=== PATIENT | male | born 1975 | race Caucasian/White ===

== ENCOUNTER 2024-04-17 10:32 | Inpatient (IN) | payer OTHER ==
[2024-04-17 11:00] VITALS: BMI 21.9
[2024-04-17] MEDS ORDERED: MAGNESIUM HYDROX 2400MG/30ML ORAL SUSPENSION 30 ML CUP PO PRN (11:27)
[2024-04-17] MEDS ORDERED: NALOXONE (NARCAN) HCL 4 MG/0.1 ML SPRAY NS PRN (11:27)
[2024-04-17] MEDS ORDERED: MAG HYDROX/AL HYDROX/SIMETH 30 ML UNIT-DOSE CUP PO PRN (11:27)
[2024-04-17] MEDS ORDERED: POLYETHYLENE GLYCOL (HEALTHYLAX) 3350 17 GM PACKET PO PRN (11:27)
[2024-04-17] MEDS ORDERED: IBUPROFEN 400 MG TABLET (FP) PO PRN (11:27)
[2024-04-17] MEDS ORDERED: IBUPROFEN 600 MG TABLET (FP) PO PRN (11:27)
[2024-04-17] MEDS ORDERED: guaiFENesin 600 MG TABLET.ER (FP) PO PRN (11:27)
[2024-04-17] MEDS ORDERED: LOPERAMIDE HCL 2 MG CAPSULE PO PRN (11:27)
[2024-04-17] MEDS ORDERED: NALOXONE HCL 0.4 MG/ML VIAL IM PRN (11:27)
[2024-04-17] MEDS ORDERED: ACETAMINOPHEN 325 MG TABLET (FP) PO PRN (11:27)
[2024-04-17] MEDS ORDERED: BENZOCAINE/MENTHOL (CHLORASEPTIC ) LOZENGE MM PRN (11:27)
[2024-04-17] MEDS ORDERED: BENZONATATE 200 MG CAPSULE PO PRN (11:27)
[2024-04-17] MEDS ORDERED: PRENATAL VITAMINS W/ FOLIC ACID TABLET (FP) PO ONE (11:54)
[2024-04-17] MEDS ORDERED: NICOTINE 7 MG/24 HOURS TOPICAL PATCH TD ONE (11:54)
[2024-04-17] MEDS: NICOTINE 7 MG/24 HOURS TOPICAL PATCH TD SCH (11:56)
[2024-04-17] MEDS: PRENATAL VITAMINS W/ FOLIC ACID TABLET (FP) PO SCH (11:56)
[2024-04-17] MEDS: hydrOXYzine PAMOATE 25 MG CAPSULE (FP) PO PRN (16:55)
[2024-04-17] MEDS: MELATONIN 5 MG TABLETS PO SCH (21:34)
[2024-04-17] MEDS: QUEtiapine FUMARATE 50 MG TABLET PO SCH (21:34)
[2024-04-17] MEDS: THIAMINE 100 MG TABLET PO SCH (21:34)
[2024-04-18] MEDS: methaDONE HCL 40 MG DISPERSABLE TABLET PO SCH (09:19)
[2024-04-18 09:23] LABS: HEMATOCRIT 40.4 % (35.4-49); HEMOGLOBIN 12.6 GM/dL (11.7-16.9); MCHC 31.2 g/dl (32.0-35.9); MEAN CELL VOLUME 62.7 fl (80-96); MEAN PLT VOLUME 9.7 fl (7.5-11.1); PLATELET COUNT 144 10^3/uL (134-434); RBC 6.44 M/mm3 (4.00-5.60); RDW 17.2 % (11.9-15.9)
[2024-04-18 09:25] LABS: MCH 19.6 pg (25.7-33.7)
[2024-04-18 09:28] LABS: INR 1.7 (0.83-1.09); PROTHROMBIN TIME (PATIENT) 19.3 SEC (9.7-13.0)
[2024-04-18 09:29] LABS: POTASSIUM 4.2 mmol/L (3.5-5.1)
[2024-04-18 09:41] LABS: BLOOD UREA NITROGEN 20.8 mg/dL (7-18); CALCIUM 8.7 mg/dL (8.5-10.1)
[2024-04-18 09:42] LABS: ALBUMIN 3.7 g/dl (3.4-5.0)
[2024-04-18 09:43] LABS: BILIRUBIN,TOTAL 0.7 mg/dL (0.2-1); TOT PROT 6.6 g/dl (6.4-8.2)
[2024-04-18 09:44] LABS: CREATININE 0.9 mg/dL (0.55-1.3)
[2024-04-18 11:36] LABS: SYPHILIS W/ RPR CONF NON-REACTIVE (NONREACTIVE)
[2024-04-18] MEDS: WARFARIN NA 5 MG TABLET PO SCH (17:14)
[2024-04-19 12:44] LABS: URINE APPEARANCE CLEAR; URINE BILIRUBIN NEGATIVE (NEGATIVE); URINE COLOR YELLOW; URINE GLUCOSE (UA) NEGATIVE (NEGATIVE); URINE KETONE NEGATIVE (NEGATIVE); URINE LEUK ESTERASE NEGATIVE (NEGATIVE); URINE NITRITE NEGATIVE (NEGATIVE); URINE PROTEIN NEGATIVE (NEGATIVE); URINE UROBILINOGEN 0.2 mg/dL (0.2-1.0)
[2024-04-19 12:51] LABS: INR 1.4 (0.83-1.09); PROTHROMBIN TIME (PATIENT) 15.7 SEC (9.7-13.0)
[2024-04-19] MEDS ORDERED: WARFARIN NA 2.5 MG TABLET PO ONE (14:17)
[2024-04-19] MEDS: WARFARIN NA 5 MG TABLET PO ONE (14:46)
[2024-04-19] MEDS: WARFARIN NA 2.5 MG TABLET PO ONE (15:48)
[2024-04-19] MEDS: CEPHALEXIN MONOHYDRATE 500 MG CAPSULE (UD) PO SCH (19:59)
[2024-04-20 06:39] VITALS: RESP 18; TEMP 97.7
[2024-04-20 10:38] VITALS: BP 126/69; PULSE 84
[2024-04-20] MEDS ORDERED: WARFARIN NA 5 MG TABLET PO SCH (18:00)
[2024-04-20] MEDS ORDERED: WARFARIN NA 10 MG, WARFARIN NA 2.5 MG PO SCH (18:00)
== END 2024-04-20 15:50 | disposition short-term general hospital (02) | DRG 772 ==
LOC: YASAS 10:32 → Y3NR 12:10 → Y3W 04-18 12:29
PROVIDERS: ADMIT Psychiatry & Neurology Pain Medicine; ATTEND Psychiatry & Neurology Pain Medicine
PROC: HZ42ZZZ Group Counseling for Substance Abuse Treatment, Cognitive-Behavioral (ICD-10-PCS; principal; 2024-04-17)
DX: F11.20 Opioid dependence, uncomplicated (principal); F14.20 Cocaine dependence, uncomplicated; F17.210 Nicotine dependence, cigarettes, uncomplicated; F19.24 Other psychoactive substance dependence with psychoactive substance-induced mood disorder; F41.9 Anxiety disorder, unspecified; F32.A Depression, unspecified; D68.8 Other specified coagulation defects; I63.9 Cerebral infarction, unspecified; G47.00 Insomnia, unspecified; K08.89 Other specified disorders of teeth and supporting structures; Z79.01 Long term (current) use of anticoagulants; Z95.2 Presence of prosthetic heart valve; I69.828 Other speech and language deficits following other cerebrovascular disease
CPT/HCPCS: 36415; 80053; 80305; 81003; 85027; 85610; 86780; 86803; 87811; 93005; 93010

== ENCOUNTER 2024-04-20 11:09 | Inpatient (IN) | payer OTHER ==
[2024-04-20] MEDS ORDERED: ASPIRIN 81 MG CHEWABLE TABLETS ONE (11:51)
[2024-04-20] MEDS: ASPIRIN 81 MG CHEWABLE TABLETS PO ONE (11:55)
[2024-04-20 12:02] LABS: BASO % 0.7 % (0-2.0); EOS % 1.5 % (0-4.5); HEMATOCRIT 34.3 % (35.4-49); HEMOGLOBIN 10.9 GM/dL (11.7-16.9); LYMPH % 32.2 % (8-40); MCH 19.6 pg (25.7-33.7); MCHC 31.6 g/dl (32.0-35.9); MEAN CELL VOLUME 61.9 fl (80-96); MEAN PLT VOLUME 9.7 fl (7.5-11.1); MONO % 7.2 % (3.8-10.2); NEUT % 58.4 % (42.8-82.8); PLATELET COUNT 144 10^3/uL (134-434); RBC 5.55 M/mm3 (4.00-5.60); RDW 16.8 % (11.9-15.9); WHITE BLOOD COUNT 6.1 K/mm3 (4.0-10.0)
[2024-04-20 12:10] LABS: INR 2.57 (0.83-1.09); PROTHROMBIN TIME (PATIENT) 28.7 SEC (9.7-13.0)
[2024-04-20 12:12] LABS: ACTIVATED PTT 33.7 SECONDS (25.2-36.5)
[2024-04-20 12:25] LABS: POTASSIUM 4.4 mmol/L (3.5-5.1)
[2024-04-20] MEDS: SODIUM CHLORIDE 1,000 ML IV SCH (12:25)
[2024-04-20 12:28] LABS: ALBUMIN 3.3 g/dl (3.4-5.0); CALCIUM 8.5 mg/dL (8.5-10.1)
[2024-04-20 12:30] LABS: BLOOD UREA NITROGEN 19.8 mg/dL (7-18)
[2024-04-20 12:31] LABS: PH,URINE 6.5 (5.0-8.0); URINE APPEARANCE CLEAR; URINE BILIRUBIN NEGATIVE (NEGATIVE); URINE COLOR YELLOW; URINE GLUCOSE (UA) NEGATIVE (NEGATIVE); URINE KETONE NEGATIVE (NEGATIVE); URINE LEUK ESTERASE NEGATIVE (NEGATIVE); URINE NITRITE NEGATIVE (NEGATIVE); URINE PROTEIN NEGATIVE (NEGATIVE); URINE UROBILINOGEN 0.2 mg/dL (0.2-1.0)
[2024-04-20 12:32] LABS: CREATININE 0.8 mg/dL (0.55-1.3)
[2024-04-20 12:33] LABS: TOT PROT 5.9 g/dl (6.4-8.2)
[2024-04-20 12:35] LABS: BILIRUBIN,TOTAL 0.5 mg/dL (0.2-1)
[2024-04-20 12:37] LABS: COCAINE, UR NEGATIVE (NEGATIVE); OPIATES, URI NEGATIVE (NEGATIVE); PHENCYCLIDINE,URINE NEGATIVE (NEGATIVE); URINE BARBITURATES NEGATIVE (NEGATIVE); URINE BENZODIAZEPINES NEGATIVE (NEGATIVE)
[2024-04-20 12:41] LABS: ANISOCYTOSIS 2+; MACROCYTOSIS 0; OVALOCYTE 1+; TARGET CELLS 2+
[2024-04-20 12:46] LABS: METHADONE, UR POSITIVE (NEGATIVE); URINE AMPHETAMINES NEGATIVE (NEGATIVE)
[2024-04-20 13:22] LABS: HIV INTERPRETATION NEGATIVE (NEGATIVE)
[2024-04-20] MEDS ORDERED: ACETAMINOPHEN 500 MG TABLET (FP) PO PRN (15:22)
[2024-04-20] MEDS: AMOX TR/POT CLAV 875MG/125MG TABLETS (FP) PO SCH (17:34)
[2024-04-20] MEDS: NICOTINE 7 MG/24 HOURS TOPICAL PATCH TD SCH (17:35)
[2024-04-20] MEDS: WARFARIN NA 10 MG TABLET PO SCH (17:37)
[2024-04-20] MEDS: ATORVASTATIN CA 40 MG TABLET (FP) PO SCH (21:24)
[2024-04-20 22:04] LABS: CHOLESTEROL 142 mg/dL (50-200)
[2024-04-20 22:07] LABS: LDL CHOLESTEROL (ONLY SJRH) 68 mg/dL (5-100)
[2024-04-20 22:37] LABS: HDL CHOLESTEROL 45 mg/dL (40-60)
[2024-04-21 09:17] LABS: INR 3.19 (0.83-1.09); PROTHROMBIN TIME (PATIENT) 34.9 SEC (9.7-13.0)
[2024-04-21 09:18] LABS: HEMATOCRIT 38.6 % (35.4-49); HEMOGLOBIN 12.1 GM/dL (11.7-16.9); LYMPH % 40.5 % (8-40); MCHC 31.4 g/dl (32.0-35.9); MEAN CELL VOLUME 61.8 fl (80-96); MEAN PLT VOLUME 9.7 fl (7.5-11.1); NEUT % 50.5 % (42.8-82.8); RBC 6.24 M/mm3 (4.00-5.60); RDW 17.2 % (11.9-15.9); WHITE BLOOD COUNT 4.8 K/mm3 (4.0-10.0)
[2024-04-21 09:20] LABS: MCH 19.4 pg (25.7-33.7)
[2024-04-21 09:29] LABS: POTASSIUM 4.5 mmol/L (3.5-5.1)
[2024-04-21 09:35] LABS: ALBUMIN 3.7 g/dl (3.4-5.0); BLOOD UREA NITROGEN 19.7 mg/dL (7-18)
[2024-04-21] MEDS: PANTOPRAZOLE 40 MG TABLET PO SCH (09:37)
[2024-04-21 09:39] LABS: BILIRUBIN,TOTAL 0.5 mg/dL (0.2-1); CREATININE 0.9 mg/dL (0.55-1.3)
[2024-04-21 09:40] LABS: TOT PROT 6.5 g/dl (6.4-8.2)
[2024-04-21] MEDS ORDERED: methaDONE HCL 40 MG DISPERSABLE TABLET PO SCH (10:00)
[2024-04-21 10:11] LABS: PLATELET COUNT 151 10^3/uL (134-434)
[2024-04-21] MEDS: methaDONE HCL 40 MG DISPERSABLE TABLET PO SCH (10:35)
[2024-04-21] MEDS ORDERED: QUEtiapine FUMARATE 25 MG TABLET ONE ×2 (11:29→22:20)
[2024-04-21] MEDS: NICOTINE 21 MG/24 HOURS TOPICAL PATCH TD SCH (11:31)
[2024-04-21] MEDS: QUEtiapine FUMARATE 50 MG TABLET PO SCH (11:31)
[2024-04-21] MEDS: THIAMINE 100 MG TABLET PO SCH (11:31)
[2024-04-21] MEDS: NICOTINE POLACRILEX 4 MG GUM BUC PRN (13:20)
[2024-04-21] MEDS: POLYETHYLENE GLYCOL (HEALTHYLAX) 3350 17 GM PACKET PO SCH (22:22)
[2024-04-21] MEDS: ATORVASTATIN CA 80 MG TABLET (FP) PO SCH (22:22)
[2024-04-21] MEDS: MELATONIN 5 MG TABLETS PO PRN (22:22)
[2024-04-22 07:38] LABS: BASO % 0.9 % (0-2.0); EOS % 2.8 % (0-4.5); HEMATOCRIT 37.3 % (35.4-49); HEMOGLOBIN 11.9 GM/dL (11.7-16.9); LYMPH % 37.7 % (8-40); MCHC 31.8 g/dl (32.0-35.9); MEAN CELL VOLUME 62.3 fl (80-96); MEAN PLT VOLUME 10.3 fl (7.5-11.1); MONO % 5.6 % (3.8-10.2); PLATELET COUNT 154 10^3/uL (134-434); RBC 5.99 M/mm3 (4.00-5.60); RDW 16.5 % (11.9-15.9); WHITE BLOOD COUNT 7.1 K/mm3 (4.0-10.0)
[2024-04-22 07:39] LABS: MCH 19.8 pg (25.7-33.7)
[2024-04-22 07:44] LABS: POTASSIUM 4.5 mmol/L (3.5-5.1)
[2024-04-22 07:49] LABS: CALCIUM 8.6 mg/dL (8.5-10.1)
[2024-04-22 07:50] LABS: MAGNESIUM 2.1 mg/dL (1.8-2.4)
[2024-04-22 07:51] LABS: ALBUMIN 3.4 g/dl (3.4-5.0)
[2024-04-22 07:54] LABS: BILIRUBIN,TOTAL 0.3 mg/dL (0.2-1)
[2024-04-22 07:55] LABS: TOT PROT 6.1 g/dl (6.4-8.2)
[2024-04-22] MEDS ORDERED: QUEtiapine FUMARATE 25 MG TABLET ONE (09:03)
[2024-04-22] MEDS: ASPIRIN COATED 81 MG TABLET.EC PO SCH (09:08)
[2024-04-22] MEDS: MULTIVITAMINS (DAILY MVI) TABLET (FP) PO SCH (09:09)
[2024-04-22 10:25] LABS: PROTHROMBIN TIME (PATIENT) 45.1 SEC (9.7-13.0)
[2024-04-22 10:42] LABS: INR 4.09 (0.83-1.09)
[2024-04-23 09:01] LABS: INR 3.1 (0.83-1.09); PROTHROMBIN TIME (PATIENT) 33.9 SEC (9.7-13.0)
[2024-04-23 09:19] LABS: BASO % 0.5 % (0-2.0); EOS % 3.4 % (0-4.5); HEMATOCRIT 37.7 % (35.4-49); LYMPH % 42.9 % (8-40); MCHC 31.7 g/dl (32.0-35.9); MEAN CELL VOLUME 61.8 fl (80-96); MONO % 6.2 % (3.8-10.2); PLATELET COUNT 158 10^3/uL (134-434); RDW 16.7 % (11.9-15.9); WHITE BLOOD COUNT 6.6 K/mm3 (4.0-10.0)
[2024-04-23 09:25] LABS: POTASSIUM 4.2 mmol/L (3.5-5.1)
[2024-04-23 09:26] LABS: MCH 19.6 pg (25.7-33.7)
[2024-04-23 09:30] LABS: CALCIUM 8.8 mg/dL (8.5-10.1)
[2024-04-23 09:31] LABS: ALBUMIN 3.7 g/dl (3.4-5.0); BLOOD UREA NITROGEN 25.2 mg/dL (7-18)
[2024-04-23 09:35] LABS: BILIRUBIN,TOTAL 0.7 mg/dL (0.2-1); CREATININE 0.9 mg/dL (0.55-1.3)
[2024-04-23 09:36] LABS: TOT PROT 6.8 g/dl (6.4-8.2)
[2024-04-23] MEDS ORDERED: QUEtiapine FUMARATE 25 MG TABLET ONE ×2 (09:43→22:14)
[2024-04-23] MEDS: WARFARIN NA 5 MG, WARFARIN NA 3 MG PO SCH (17:23)
[2024-04-23] MEDS: WARFARIN NA 10 MG TABLET PO SCH (17:24)
[2024-04-23] MEDS ORDERED: WARFARIN NA 3 MG TABLET ONE (18:05)
[2024-04-24] MEDS ORDERED: QUEtiapine FUMARATE 25 MG TABLET ONE ×2 (09:39→21:13)
[2024-04-24 09:58] LABS: INR 2.55 (0.83-1.09); PROTHROMBIN TIME (PATIENT) 28.5 SEC (9.7-13.0)
[2024-04-24 10:06] LABS: BASO % 0.6 % (0-2.0); HEMOGLOBIN 12.1 GM/dL (11.7-16.9); MCHC 31.9 g/dl (32.0-35.9); MEAN CELL VOLUME 62.1 fl (80-96); MEAN PLT VOLUME 10.2 fl (7.5-11.1); MONO % 6.3 % (3.8-10.2); NEUT % 55.1 % (42.8-82.8); PLATELET COUNT 144 10^3/uL (134-434); RBC 6.12 M/mm3 (4.00-5.60)
[2024-04-24 10:08] LABS: MCH 19.8 pg (25.7-33.7)
[2024-04-24 10:42] LABS: ANISOCYTOSIS 1+; MACROCYTOSIS 0; TARGET CELLS 1+
[2024-04-24 11:01] LABS: POTASSIUM 4.1 mmol/L (3.5-5.1)
[2024-04-24 11:17] LABS: CALCIUM 8.7 mg/dL (8.5-10.1)
[2024-04-24 11:18] LABS: BLOOD UREA NITROGEN 25.7 mg/dL (7-18)
[2024-04-24 11:20] LABS: ALBUMIN 3.7 g/dl (3.4-5.0)
[2024-04-24 11:21] LABS: PHOSPHOROUS 3.8 mg/dL (2.5-4.9)
[2024-04-24 11:22] LABS: BILIRUBIN,TOTAL 0.8 mg/dL (0.2-1); TOT PROT 6.7 g/dl (6.4-8.2)
[2024-04-24] MEDS ORDERED: WARFARIN NA 3 MG TABLET ONE (17:04)
[2024-04-25 07:59] LABS: HEMATOCRIT 38.6 % (35.4-49); HEMOGLOBIN 11.9 GM/dL (11.7-16.9); MCHC 30.9 g/dl (32.0-35.9); MEAN CELL VOLUME 63.2 fl (80-96); MEAN PLT VOLUME 10.9 fl (7.5-11.1); PLATELET COUNT 174 10^3/uL (134-434); RDW 16.9 % (11.9-15.9); WHITE BLOOD COUNT 7.6 K/mm3 (4.0-10.0)
[2024-04-25 08:01] LABS: MCH 19.5 pg (25.7-33.7)
[2024-04-25 08:15] LABS: INR 3.05 (0.83-1.09); PROTHROMBIN TIME (PATIENT) 33.4 SEC (9.7-13.0)
[2024-04-25 08:18] LABS: POTASSIUM 4.1 mmol/L (3.5-5.1)
[2024-04-25 08:21] LABS: ALBUMIN 3.8 g/dl (3.4-5.0); BLOOD UREA NITROGEN 24.4 mg/dL (7-18); CALCIUM 8.9 mg/dL (8.5-10.1)
[2024-04-25 08:24] LABS: PHOSPHOROUS 3.8 mg/dL (2.5-4.9)
[2024-04-25 08:26] LABS: BILIRUBIN,TOTAL 1.2 mg/dL (0.2-1); TOT PROT 6.8 g/dl (6.4-8.2)
[2024-04-25] MEDS ORDERED: QUEtiapine FUMARATE 25 MG TABLET ONE (09:47)
[2024-04-25 09:48] LABS: BILIRUBIN,DIRECT 0.2 mg/dL (0.0-0.2)
[2024-04-25 11:07] VITALS: BMI 22.9
[2024-04-25] MEDS: WARFARIN NA 5 MG TABLET PO SCH (18:52)
[2024-04-26 05:47] VITALS: RESP 18
[2024-04-26 14:38] VITALS: BP 102/58; PULSE 64; TEMP 98.7
== END 2024-04-26 14:42 | disposition other institution (70) | DRG 45 ==
LOC: JER 11:09 → JERBED 13:16 → OBSVTOIN 13:54 → J4S 15:12
PROVIDERS: ADMIT Internal Medicine; ATTEND Internal Medicine
DX: I63.9 Cerebral infarction, unspecified (principal); E44.0 Moderate protein-calorie malnutrition; F11.20 Opioid dependence, uncomplicated; I69.354 Hemiplegia and hemiparesis following cerebral infarction affecting left non-dominant side; E78.5 Hyperlipidemia, unspecified; F17.210 Nicotine dependence, cigarettes, uncomplicated; K02.9 Dental caries, unspecified; Z68.23 Body mass index [BMI] 23.0-23.9, adult
CPT/HCPCS: 36415; 70450-TC; 70496-TC; 70498-TC; 70551-TC; 71045-TC-FY; 80053; 80061; 80307; 81003; 82248; 82550; 82728; 82962; 83036; 83540; 83550; 83735; 84100; 84484; 85025; 85027; 85610; 85730; 86803; 86850; 86900; 86901; 87389; 93005; 93010; 97116-GP; 97161-GP; 99291; G0378

== ENCOUNTER 2024-04-26 16:37 | Inpatient (IN) | payer OTHER ==
[2024-04-26 17:25] VITALS: BMI 22.9
[2024-04-26] MEDS ORDERED: IBUPROFEN 600 MG TABLET (FP) PO PRN (19:12)
[2024-04-26] MEDS ORDERED: ACETAMINOPHEN 325 MG TABLET (FP) PO PRN (19:12)
[2024-04-26] MEDS ORDERED: BENZOCAINE/MENTHOL (CHLORASEPTIC ) LOZENGE MM PRN (19:12)
[2024-04-26] MEDS ORDERED: IBUPROFEN 400 MG TABLET (FP) PO PRN (19:12)
[2024-04-26] MEDS ORDERED: LOPERAMIDE HCL 2 MG CAPSULE PO PRN (19:12)
[2024-04-26] MEDS ORDERED: NALOXONE HCL 0.4 MG/ML VIAL IM PRN (19:12)
[2024-04-26] MEDS ORDERED: MAGNESIUM HYDROX 2400MG/30ML ORAL SUSPENSION 30 ML CUP PO PRN (19:12)
[2024-04-26] MEDS ORDERED: hydrOXYzine PAMOATE 25 MG CAPSULE (FP) PO PRN (19:12)
[2024-04-26] MEDS ORDERED: MAG HYDROX/AL HYDROX/SIMETH 30 ML UNIT-DOSE CUP PO PRN (19:12)
[2024-04-26] MEDS ORDERED: BENZONATATE 200 MG CAPSULE PO PRN (19:12)
[2024-04-26] MEDS ORDERED: guaiFENesin 600 MG TABLET.ER (FP) PO PRN (19:12)
[2024-04-26] MEDS ORDERED: POLYETHYLENE GLYCOL (HEALTHYLAX) 3350 17 GM PACKET PO PRN (19:12)
[2024-04-26] MEDS ORDERED: NALOXONE (NARCAN) HCL 4 MG/0.1 ML SPRAY NS PRN (19:12)
[2024-04-26] MEDS: QUEtiapine FUMARATE 50 MG TABLET PO SCH (21:39)
[2024-04-26] MEDS ORDERED: ATORVASTATIN CA 40 MG TABLET (FP) ONE (21:39)
[2024-04-26] MEDS: MELATONIN 5 MG TABLETS PO SCH (21:39)
[2024-04-26] MEDS: ATORVASTATIN CA 80 MG TABLET (FP) PO SCH (21:40)
[2024-04-26] MEDS: THIAMINE 100 MG TABLET PO SCH (21:40)
[2024-04-27] MEDS ORDERED: methaDONE HCL 10 MG TABLET PO ONE (09:46)
[2024-04-27] MEDS: PRENATAL VITAMINS W/ FOLIC ACID TABLET (FP) PO SCH (10:01)
[2024-04-27] MEDS: NICOTINE 21 MG/24 HOURS TOPICAL PATCH TD SCH (10:01)
[2024-04-27] MEDS: ASPIRIN COATED 81 MG TABLET.EC PO SCH (10:01)
[2024-04-27] MEDS: methaDONE HCL 40 MG DISPERSABLE TABLET PO ONE (10:01)
[2024-04-27 11:15] LABS: CHLORIDE 105 mmol/L (98-107); POTASSIUM 4.3 mmol/L (3.5-5.1); SODIUM 139 mmol/L (136-145)
[2024-04-27 11:18] LABS: CALCIUM 8.8 mg/dL (8.5-10.1)
[2024-04-27 11:19] LABS: ALBUMIN 3.6 g/dl (3.4-5.0)
[2024-04-27 11:21] LABS: ANION GAP 4 mmol/L (4-13); BLOOD UREA NITROGEN 22.3 mg/dL (7-18); CO2 30 mmol/L (21-32); GLUCOSE,RANDOM 114 mg/dL (74-106)
[2024-04-27 11:22] LABS: CREATININE 0.9 mg/dL (0.55-1.3); SGOT/AST 44 U/L (15-37); SGPT/ALT 63 U/L (13-61)
[2024-04-27 11:24] LABS: ALK PHOS 66 U/L (45-117); TOT PROT 6.6 g/dl (6.4-8.2)
[2024-04-27 11:25] LABS: BILIRUBIN,TOTAL 0.6 mg/dL (0.2-1)
[2024-04-27 11:31] LABS: HEMATOCRIT 37.3 % (35.4-49); HEMOGLOBIN 11.5 GM/dL (11.7-16.9); MCH 19.1 pg (25.7-33.7); MCHC 30.9 g/dl (32.0-35.9); MEAN PLT VOLUME 10.4 fl (7.5-11.1); PLATELET COUNT 157 10^3/uL (134-434); RBC 6.01 M/mm3 (4.00-5.60); WHITE BLOOD COUNT 8.5 K/mm3 (4.0-10.0)
[2024-04-27 11:34] LABS: URINE APPEARANCE CLEAR; URINE BILIRUBIN NEGATIVE (NEGATIVE); URINE COLOR YELLOW; URINE GLUCOSE (UA) NEGATIVE (NEGATIVE); URINE KETONE NEGATIVE (NEGATIVE); URINE LEUK ESTERASE NEGATIVE (NEGATIVE); URINE NITRITE NEGATIVE (NEGATIVE); URINE PROTEIN NEGATIVE (NEGATIVE)
[2024-04-27 11:52] LABS: SYPHILIS W/ RPR CONF NON-REACTIVE (NONREACTIVE)
[2024-04-27] MEDS: QUEtiapine FUMARATE 50 MG TABLET PO SCH (12:45)
[2024-04-27] MEDS ORDERED: ATORVASTATIN CA 40 MG TABLET (FP) ONE (20:04)
[2024-04-27] MEDS: WARFARIN NA 10 MG TABLET PO SCH (20:59)
[2024-04-28] MEDS: methaDONE HCL 40 MG DISPERSABLE TABLET PO SCH (07:00)
[2024-04-28 09:28] LABS: INR 1.61 (0.83-1.09); PROTHROMBIN TIME (PATIENT) 18.3 SEC (9.7-13.0)
[2024-04-28] MEDS ORDERED: ATORVASTATIN CA 40 MG TABLET (FP) ONE (20:51)
[2024-04-29] MEDS ORDERED: WARFARIN NA 5 MG TABLET PO SCH (09:48)
[2024-04-29] MEDS ORDERED: WARFARIN NA 2.5 MG TABLET PO ONE (11:00)
[2024-04-29] MEDS: WARFARIN NA 10 MG TABLET PO ONE (17:36)
[2024-04-29] MEDS ORDERED: ATORVASTATIN CA 40 MG TABLET (FP) ONE (21:02)
[2024-04-29] MEDS: SUVOREXANT 5 MG TABLET PO SCH (21:41)
[2024-04-30 12:27] LABS: INR 2.83 (0.83-1.09); PROTHROMBIN TIME (PATIENT) 31.6 SEC (9.7-13.0)
[2024-04-30] MEDS ORDERED: WARFARIN NA 5 MG TABLET PO SCH (18:00)
[2024-04-30] MEDS ORDERED: WARFARIN NA 10 MG, WARFARIN NA 2.5 MG PO SCH (18:00)
[2024-04-30] MEDS: WARFARIN NA 10 MG, WARFARIN NA 2.5 MG PO SCH (18:17)
[2024-04-30] MEDS ORDERED: ATORVASTATIN CA 40 MG TABLET (FP) ONE (20:51)
[2024-05-01 12:18] LABS: INR 3.33 (0.83-1.09); PROTHROMBIN TIME (PATIENT) 36.3 SEC (9.7-13.0)
[2024-05-01] MEDS ORDERED: ATORVASTATIN CA 40 MG TABLET (FP) ONE (20:55)
[2024-05-02 06:56] VITALS: RESP 16; TEMP 97.7
[2024-05-02 12:27] LABS: INR 2.54 (0.83-1.09); PROTHROMBIN TIME (PATIENT) 28.4 SEC (9.7-13.0)
[2024-05-02] MEDS: WARFARIN NA 10 MG, WARFARIN NA 2.5 MG PO SCH (17:38)
[2024-05-02 19:46] VITALS: BP 131/88; PULSE 84
== END 2024-05-03 07:00 | disposition short-term general hospital (02) | DRG 772 ==
LOC: YASAS 16:37 → Y3W 20:30
PROVIDERS: ADMIT Allergy & Immunology; ATTEND Psychiatry & Neurology Pain Medicine
PROC: HZ42ZZZ Group Counseling for Substance Abuse Treatment, Cognitive-Behavioral (ICD-10-PCS; principal; 2024-04-26)
DX: F14.20 Cocaine dependence, uncomplicated (principal); F11.20 Opioid dependence, uncomplicated; F17.210 Nicotine dependence, cigarettes, uncomplicated; F19.282 Other psychoactive substance dependence with psychoactive substance-induced sleep disorder; F19.24 Other psychoactive substance dependence with psychoactive substance-induced mood disorder; F41.9 Anxiety disorder, unspecified; F32.A Depression, unspecified; I63.89 Other cerebral infarction; G81.94 Hemiplegia, unspecified affecting left nondominant side; R07.9 Chest pain, unspecified; K02.9 Dental caries, unspecified; R20.0 Anesthesia of skin; Z79.01 Long term (current) use of anticoagulants; Z95.2 Presence of prosthetic heart valve; Z86.73 Personal history of transient ischemic attack (TIA), and cerebral infarction without residual deficits; Z86.79 Personal history of other diseases of the circulatory system
CPT/HCPCS: 36415; 80053; 80305; 80307; 81003; 85027; 85610; 86780; 86803; 87811; 93005; 93010

== ENCOUNTER 2024-05-02 21:51 | Observation (INO) | payer OTHER ==
[2024-05-02 22:42] LABS: INR 1.9 (0.83-1.09); PROTHROMBIN TIME (PATIENT) 21.4 SEC (9.7-13.0)
[2024-05-02 22:44] LABS: ACTIVATED PTT 34.2 SECONDS (25.2-36.5)
[2024-05-02 22:56] LABS: URINE APPEARANCE CLEAR; URINE BILIRUBIN NEGATIVE (NEGATIVE); URINE COLOR YELLOW; URINE GLUCOSE (UA) NEGATIVE (NEGATIVE); URINE KETONE NEGATIVE (NEGATIVE); URINE LEUK ESTERASE NEGATIVE (NEGATIVE); URINE NITRITE NEGATIVE (NEGATIVE); URINE PROTEIN NEGATIVE (NEGATIVE); URINE UROBILINOGEN 0.2 mg/dL (0.2-1.0)
[2024-05-02 22:56] LABS: POTASSIUM 4.1 mmol/L (3.5-5.1)
[2024-05-02 22:57] LABS: CALCIUM 8.6 mg/dL (8.5-10.1)
[2024-05-02 22:58] LABS: ALBUMIN 3.3 g/dl (3.4-5.0)
[2024-05-02 22:59] LABS: BLOOD UREA NITROGEN 19.8 mg/dL (7-18)
[2024-05-02 23:01] LABS: CREATININE 0.8 mg/dL (0.55-1.3)
[2024-05-02 23:03] LABS: TOT PROT 5.8 g/dl (6.4-8.2)
[2024-05-02 23:04] LABS: BILIRUBIN,TOTAL 0.5 mg/dL (0.2-1)
[2024-05-03 00:34] LABS: BASO % 0.7 % (0-2.0); EOS % 2.4 % (0-4.5); HEMOGLOBIN 10.2 GM/dL (11.7-16.9); LYMPH % 39.8 % (8-40); MCHC 30.9 g/dl (32.0-35.9); MEAN CELL VOLUME 62.2 fl (80-96); MEAN PLT VOLUME 9.7 fl (7.5-11.1); MONO % 6.7 % (3.8-10.2); NEUT % 50.4 % (42.8-82.8); PLATELET COUNT 150 10^3/uL (134-434); RDW 16.4 % (11.9-15.9)
[2024-05-03 00:41] LABS: MCH 19.2 pg (25.7-33.7)
[2024-05-03 05:11] LABS: ANISOCYTOSIS 2+; MACROCYTOSIS 0; OVALOCYTE 1+; ROULEAU 2+
[2024-05-03] MEDS: ENOXAPARIN NA (PORCINE) 60 MG/0.6 ML DISP.SYRIN SQ ONE (05:31)
[2024-05-03 05:48] LABS: BASO % 0.6 % (0-2.0); HEMATOCRIT 35.7 % (35.4-49); MCHC 30.9 g/dl (32.0-35.9); MEAN CELL VOLUME 62.6 fl (80-96); MEAN PLT VOLUME 10.1 fl (7.5-11.1); MONO % 5.8 % (3.8-10.2); NEUT % 45.6 % (42.8-82.8); PLATELET COUNT 161 10^3/uL (134-434); RDW 16.8 % (11.9-15.9); WHITE BLOOD COUNT 8.2 K/mm3 (4.0-10.0)
[2024-05-03 06:14] LABS: MCH 19.3 pg (25.7-33.7)
[2024-05-03 06:20] LABS: POTASSIUM 3.9 mmol/L (3.5-5.1)
[2024-05-03 06:22] LABS: ALBUMIN 3.5 g/dl (3.4-5.0); BLOOD UREA NITROGEN 16.9 mg/dL (7-18); CALCIUM 8.7 mg/dL (8.5-10.1); MAGNESIUM 1.7 mg/dL (1.8-2.4)
[2024-05-03 06:25] LABS: PHOSPHOROUS 4.3 mg/dL (2.5-4.9)
[2024-05-03 06:26] LABS: CREATININE 0.9 mg/dL (0.55-1.3)
[2024-05-03 06:28] LABS: BILIRUBIN,TOTAL 0.7 mg/dL (0.2-1); TOT PROT 6.1 g/dl (6.4-8.2)
[2024-05-03] MEDS: ASPIRIN COATED 81 MG TABLET.EC PO SCH (09:17)
[2024-05-03] MEDS: NICOTINE 21 MG/24 HOURS TOPICAL PATCH TD SCH (09:17)
[2024-05-03] MEDS: methaDONE HCL 40 MG DISPERSABLE TABLET PO ONE (09:18)
[2024-05-03 11:24] LABS: POTASSIUM 4.1 mmol/L (3.5-5.1)
[2024-05-03 11:26] LABS: CALCIUM 9.5 mg/dL (8.5-10.1)
[2024-05-03 11:27] LABS: ALBUMIN 3.9 g/dl (3.4-5.0); BLOOD UREA NITROGEN 19.4 mg/dL (7-18)
[2024-05-03 11:30] LABS: BILIRUBIN,DIRECT 0.2 mg/dL (0.0-0.2); CREATININE 0.8 mg/dL (0.55-1.3)
[2024-05-03 11:32] LABS: BILIRUBIN,TOTAL 0.8 mg/dL (0.2-1); TOT PROT 6.9 g/dl (6.4-8.2)
[2024-05-03] MEDS: ENOXAPARIN NA (PORCINE) 60 MG/0.6 ML DISP.SYRIN SQ SCH (17:08)
[2024-05-03] MEDS: WARFARIN NA 5 MG TABLET PO ONE ×2 (17:08→17:12)
[2024-05-03] MEDS: POLYETHYLENE GLYCOL (HEALTHYLAX) 3350 17 GM PACKET PO SCH (17:40)
[2024-05-03 18:19] LABS: INR 2.18 (0.83-1.09); PROTHROMBIN TIME (PATIENT) 24.1 SEC (9.7-13.0)
[2024-05-04] MEDS: methaDONE HCL 40 MG DISPERSABLE TABLET PO SCH (05:30)
[2024-05-04 09:37] LABS: HEMATOCRIT 41.3 % (35.4-49); HEMOGLOBIN 12.7 GM/dL (11.7-16.9); MCHC 30.8 g/dl (32.0-35.9); MEAN CELL VOLUME 63.2 fl (80-96); MEAN PLT VOLUME 10.1 fl (7.5-11.1); PLATELET COUNT 202 10^3/uL (134-434); RBC 6.54 M/mm3 (4.00-5.60); RDW 17.3 % (11.9-15.9); WHITE BLOOD COUNT 8.8 K/mm3 (4.0-10.0)
[2024-05-04 09:43] LABS: MCH 19.5 pg (25.7-33.7)
[2024-05-04 09:45] LABS: INR 2.34 (0.83-1.09); PROTHROMBIN TIME (PATIENT) 26.3 SEC (9.7-13.0)
[2024-05-04 10:57] LABS: ANISOCYTOSIS 1+; MACROCYTOSIS 0; TARGET CELLS 1+
[2024-05-04] MEDS: ACETAMINOPHEN 325 MG TABLET (FP) PO PRN (14:48)
[2024-05-04] MEDS: WARFARIN NA 5 MG TABLET PO SCH (18:22)
[2024-05-04] MEDS: ATORVASTATIN CA 80 MG TABLET (FP) PO SCH (21:07)
[2024-05-04] MEDS: MELATONIN 5 MG TABLETS PO PRN (21:31)
[2024-05-05 08:09] LABS: BASO % 0.7 % (0-2.0); HEMATOCRIT 37.2 % (35.4-49); HEMOGLOBIN 11.7 GM/dL (11.7-16.9); LYMPH % 26.9 % (8-40); MCHC 31.6 g/dl (32.0-35.9); MEAN CELL VOLUME 61.6 fl (80-96); MEAN PLT VOLUME 9.3 fl (7.5-11.1); MONO % 8.4 % (3.8-10.2); PLATELET COUNT 174 10^3/uL (134-434); RBC 6.03 M/mm3 (4.00-5.60); RDW 17.3 % (11.9-15.9); WHITE BLOOD COUNT 6.6 K/mm3 (4.0-10.0)
[2024-05-05 08:14] LABS: MCH 19.5 pg (25.7-33.7)
[2024-05-05 08:52] LABS: POTASSIUM 4.3 mmol/L (3.5-5.1)
[2024-05-05 09:00] LABS: ALBUMIN 3.7 g/dl (3.4-5.0)
[2024-05-05 09:03] LABS: BILIRUBIN,TOTAL 0.6 mg/dL (0.2-1); CREATININE 0.8 mg/dL (0.55-1.3); TOT PROT 6.4 g/dl (6.4-8.2)
[2024-05-05 09:04] LABS: CALCIUM 9.5 mg/dL (8.5-10.1)
[2024-05-05] MEDS: methaDONE HCL 40 MG DISPERSABLE TABLET PO SCH (09:05)
[2024-05-05] MEDS: methaDONE HCL 10 MG TABLET PO ONE (09:58)
[2024-05-05 11:39] LABS: INR 3.53 (0.83-1.09); PROTHROMBIN TIME (PATIENT) 38.4 SEC (9.7-13.0)
[2024-05-05] MEDS: AMOX TR/POT CLAV 250MG/125MG TABLETS PO SCH (17:07)
[2024-05-06 08:21] LABS: BASO % 0.4 % (0-2.0); EOS % 2.3 % (0-4.5); HEMATOCRIT 39.2 % (35.4-49); HEMOGLOBIN 12.1 GM/dL (11.7-16.9); LYMPH % 34.2 % (8-40); MCHC 30.8 g/dl (32.0-35.9); MEAN CELL VOLUME 62.7 fl (80-96); MEAN PLT VOLUME 9.9 fl (7.5-11.1); MONO % 6.9 % (3.8-10.2); NEUT % 56.2 % (42.8-82.8); PLATELET COUNT 187 10^3/uL (134-434); RBC 6.26 M/mm3 (4.00-5.60); WHITE BLOOD COUNT 7.3 K/mm3 (4.0-10.0)
[2024-05-06 08:25] LABS: MCH 19.3 pg (25.7-33.7)
[2024-05-06 10:33] LABS: ANISOCYTOSIS 0; MACROCYTOSIS 0; TARGET CELLS 2+
[2024-05-06 15:28] LABS: INR 3.94 (0.83-1.09); PROTHROMBIN TIME (PATIENT) 43.5 SEC (9.7-13.0)
[2024-05-07 12:21] LABS: INR 2.43 (0.83-1.09); PROTHROMBIN TIME (PATIENT) 26.8 SEC (9.7-13.0)
[2024-05-07 12:24] LABS: BASO % 0.8 % (0-2.0); EOS % 1.2 % (0-4.5); HEMATOCRIT 38.9 % (35.4-49); HEMOGLOBIN 12.3 GM/dL (11.7-16.9); MCHC 31.7 g/dl (32.0-35.9); MEAN CELL VOLUME 61.6 fl (80-96); MEAN PLT VOLUME 9.6 fl (7.5-11.1); MONO % 6.1 % (3.8-10.2); NEUT % 63.9 % (42.8-82.8); RBC 6.31 M/mm3 (4.00-5.60); RDW 17.3 % (11.9-15.9)
[2024-05-07 12:27] LABS: MCH 19.5 pg (25.7-33.7); PLATELET COUNT 191 10^3/uL (134-434)
[2024-05-07 12:31] LABS: POTASSIUM 4.6 mmol/L (3.5-5.1)
[2024-05-07 12:32] LABS: CALCIUM 9.3 mg/dL (8.5-10.1)
[2024-05-07 12:33] LABS: BLOOD UREA NITROGEN 24.6 mg/dL (7-18)
[2024-05-07 12:36] LABS: CREATININE 0.9 mg/dL (0.55-1.3)
[2024-05-07] MEDS: WARFARIN NA 5 MG TABLET PO SCH (17:38)
[2024-05-08 08:24] LABS: POTASSIUM 4.4 mmol/L (3.5-5.1)
[2024-05-08 08:25] LABS: INR 1.71 (0.83-1.09); PROTHROMBIN TIME (PATIENT) 19.4 SEC (9.7-13.0)
[2024-05-08 08:29] LABS: ALBUMIN 3.8 g/dl (3.4-5.0); BLOOD UREA NITROGEN 21.7 mg/dL (7-18); CALCIUM 9.2 mg/dL (8.5-10.1)
[2024-05-08 08:34] LABS: BILIRUBIN,TOTAL 0.7 mg/dL (0.2-1); TOT PROT 6.7 g/dl (6.4-8.2)
[2024-05-08 08:54] LABS: BASO % 0.8 % (0-2.0); EOS % 1.9 % (0-4.5); HEMATOCRIT 37.5 % (35.4-49); HEMOGLOBIN 11.7 GM/dL (11.7-16.9); MCHC 31.2 g/dl (32.0-35.9); MEAN CELL VOLUME 61.8 fl (80-96); MONO % 10.7 % (3.8-10.2); NEUT % 58.6 % (42.8-82.8); PLATELET COUNT 179 10^3/uL (134-434); RBC 6.07 M/mm3 (4.00-5.60); RDW 17.1 % (11.9-15.9)
[2024-05-08 08:55] LABS: MCH 19.3 pg (25.7-33.7)
[2024-05-08] MEDS: WARFARIN NA 5 MG TABLET PO SCH (18:04)
[2024-05-08] MEDS: LORazepam 0.5 MG TABLET PO ONE (18:43)
[2024-05-08] MEDS: ENOXAPARIN NA (PORCINE) 60 MG/0.6 ML DISP.SYRIN SQ SCH (21:04)
[2024-05-08] MEDS ORDERED: ENOXAPARIN NA (PORCINE) 60 MG/0.6 ML DISP.SYRIN SQ SCH (22:00)
[2024-05-09 08:21] LABS: INR 1.55 (0.83-1.09); PROTHROMBIN TIME (PATIENT) 17.3 SEC (9.7-13.0)
[2024-05-09 08:23] LABS: HEMATOCRIT 36.5 % (35.4-49); HEMOGLOBIN 11.1 GM/dL (11.7-16.9); MCHC 30.5 g/dl (32.0-35.9); MEAN CELL VOLUME 62.8 fl (80-96); MEAN PLT VOLUME 11.2 fl (7.5-11.1); PLATELET COUNT 183 10^3/uL (134-434); RBC 5.82 M/mm3 (4.00-5.60); RDW 16.8 % (11.9-15.9); WHITE BLOOD COUNT 6.5 K/mm3 (4.0-10.0)
[2024-05-09 08:29] LABS: POTASSIUM 4.3 mmol/L (3.5-5.1)
[2024-05-09 08:33] LABS: BLOOD UREA NITROGEN 22.8 mg/dL (7-18); CALCIUM 8.9 mg/dL (8.5-10.1)
[2024-05-09 08:35] LABS: MCH 19.2 pg (25.7-33.7)
[2024-05-09 08:37] LABS: CREATININE 0.9 mg/dL (0.55-1.3)
[2024-05-09] MEDS: LORazepam 0.5 MG TABLET PO PRN (12:19)
[2024-05-09] MEDS: HEPATITIS A VIRUS VACCINE/PF 1440 UNIT/1 ML IM ONE (17:17)
[2024-05-10 08:21] LABS: BASO % 0.6 % (0-2.0); HEMATOCRIT 35.8 % (35.4-49); HEMOGLOBIN 11.3 GM/dL (11.7-16.9); MCHC 31.5 g/dl (32.0-35.9); MEAN PLT VOLUME 11.1 fl (7.5-11.1); MONO % 9.3 % (3.8-10.2); NEUT % 48.1 % (42.8-82.8); PLATELET COUNT 165 10^3/uL (134-434); RBC 5.76 M/mm3 (4.00-5.60); RDW 17.3 % (11.9-15.9); WHITE BLOOD COUNT 7.3 K/mm3 (4.0-10.0)
[2024-05-10 08:26] LABS: INR 2.14 (0.83-1.09); MCH 19.6 pg (25.7-33.7); PROTHROMBIN TIME (PATIENT) 24.1 SEC (9.7-13.0)
[2024-05-10 08:50] LABS: POTASSIUM 4.3 mmol/L (3.5-5.1)
[2024-05-10 08:52] LABS: ALBUMIN 3.4 g/dl (3.4-5.0); CALCIUM 8.9 mg/dL (8.5-10.1)
[2024-05-10 08:55] LABS: CREATININE 0.9 mg/dL (0.55-1.3)
[2024-05-10 08:57] LABS: BILIRUBIN,TOTAL 0.6 mg/dL (0.2-1)
[2024-05-10 11:05] LABS: ANISOCYTOSIS 1+; TARGET CELLS 2+
[2024-05-10 15:13] VITALS: BMI 24.7
[2024-05-11 10:55] LABS: BASO % 0.5 % (0-2.0); EOS % 2.3 % (0-4.5); HEMATOCRIT 39.4 % (35.4-49); HEMOGLOBIN 12.6 GM/dL (11.7-16.9); INR 2.4 (0.83-1.09); LYMPH % 28.9 % (8-40); MCHC 31.9 g/dl (32.0-35.9); MEAN CELL VOLUME 62.4 fl (80-96); MEAN PLT VOLUME 10.3 fl (7.5-11.1); MONO % 7.2 % (3.8-10.2); NEUT % 61.1 % (42.8-82.8); PLATELET COUNT 174 10^3/uL (134-434); PROTHROMBIN TIME (PATIENT) 26.4 SEC (9.7-13.0); RBC 6.32 M/mm3 (4.00-5.60); RDW 17.4 % (11.9-15.9); WHITE BLOOD COUNT 9.6 K/mm3 (4.0-10.0)
[2024-05-11 10:57] LABS: MCH 19.9 pg (25.7-33.7)
[2024-05-11 11:09] LABS: POTASSIUM 4.4 mmol/L (3.5-5.1)
[2024-05-11 11:13] LABS: ALBUMIN 3.8 g/dl (3.4-5.0); CALCIUM 9.1 mg/dL (8.5-10.1)
[2024-05-11 11:18] LABS: BILIRUBIN,TOTAL 0.7 mg/dL (0.2-1); TOT PROT 6.9 g/dl (6.4-8.2)
[2024-05-11] MEDS: CHOLECALCIFEROL (VIT D3) 1,000 UNIT (25 MCG) TABLET PO SCH (18:21)
[2024-05-11] MEDS: ZINC SULFATE 220 MG CAPSULE (FP) PO SCH (18:21)
[2024-05-12 14:27] LABS: INR 3.16 (0.83-1.09); PROTHROMBIN TIME (PATIENT) 35.1 SEC (9.7-13.0)
[2024-05-12] MEDS: WARFARIN NA 5 MG TABLET PO SCH (17:47)
[2024-05-12] MEDS: LORazepam 0.5 MG TABLET PO PRN (21:37)
[2024-05-13 10:52] LABS: INR 3.36 (0.83-1.09); PROTHROMBIN TIME (PATIENT) 36.7 SEC (9.7-13.0)
[2024-05-13] MEDS ORDERED: WARFARIN NA 5 MG TABLET PO SCH (13:21)
[2024-05-13] MEDS: WARFARIN NA PO SCH (17:21)
[2024-05-14 09:46] LABS: INR 2.57 (0.83-1.09); PROTHROMBIN TIME (PATIENT) 28.7 SEC (9.7-13.0)
[2024-05-14 15:54] VITALS: BP 106/75; PULSE 88; RESP 17; TEMP 98.1
== END 2024-05-14 10:43 | disposition other institution (70) ==
LOC: JER 21:51 → UNDOADMOB 05-03 04:42 → JERBED 05-03 04:42 → J4S 05-03 05:40
PROVIDERS: ADMIT Internal Medicine; ATTEND Internal Medicine
PROC: 3E023GC Introduction of Other Therapeutic Substance into Muscle, Percutaneous Approach (ICD-10-PCS; principal; 2024-05-03)
PROC: 3E033NZ Introduction of Analgesics, Hypnotics, Sedatives into Peripheral Vein, Percutaneous Approach (ICD-10-PCS; 2024-05-03)
PROC: 3E023GC Introduction of Other Therapeutic Substance into Muscle, Percutaneous Approach (ICD-10-PCS; 2024-05-03)
DX: R29.810 Facial weakness (principal); R47.81 Slurred speech; I69.822 Dysarthria following other cerebrovascular disease; F14.90 Cocaine use, unspecified, uncomplicated; K22.4 Dyskinesia of esophagus; F19.10 Other psychoactive substance abuse, uncomplicated; E78.5 Hyperlipidemia, unspecified; G81.94 Hemiplegia, unspecified affecting left nondominant side; F41.9 Anxiety disorder, unspecified; Z20.5 Contact with and (suspected) exposure to viral hepatitis; R79.9 Abnormal finding of blood chemistry, unspecified; R20.0 Anesthesia of skin; I71.9 Aortic aneurysm of unspecified site, without rupture; I71.40 Abdominal aortic aneurysm, without rupture, unspecified; I10 Essential (primary) hypertension; Z79.01 Long term (current) use of anticoagulants; Z95.2 Presence of prosthetic heart valve; I35.0 Nonrheumatic aortic (valve) stenosis; R01.1 Cardiac murmur, unspecified; F17.200 Nicotine dependence, unspecified, uncomplicated; Z23 Encounter for immunization
CPT/HCPCS: 36415; 70450-TC; 70496-TC; 70498-TC; 70551-TC; 74220-TC-FY; 74230-TC-FY; 80048; 80053; 80061; 80076; 81003; 81241; 82550; 82962; 83036; 83735; 84100; 84484; 85025; 85027; 85300; 85303; 85306; 85610; 85730; 86850; 86900; 86901; 90632; 92611-GN; 93005; 93010; 96372; 96374; 96376; 97116-GP; 97161-GP; 99285-25; G0378; Q9967